=== PATIENT | female | born 1965 | race Caucasian/White ===

== ENCOUNTER 2019-12-13 15:34 | Emergency (ER) | payer BC, OTHER ==
[2019-12-13 15:53] VITALS: BP 110/75; PULSE 85; TEMP 99; BMI 34.3
--- OUTSIDE RECORDS SUMMARY | 2019-12-13 16:18 | XMS ---
:1965 [facility] Support Name Relationship Address Phone DAVID ANDERSON Unavailable [address] [place] [address] NIESHA BAR SISTER [address] [phone] [place] [address] Re-disclosure Warning The records that you are about to access may contain information from federally- assisted alcohol or drug abuse programs. If such information is present, then the following federally mandated warning applies: This information has been disclosed to you from records protected by federal confidentiality rules (42 CFR part 2). The federal rules prohibit you from making any further disclosure of this information unless further disclosure is expressly permitted by the written consent of the person to whom it pertains or as otherwise permitted by 42 CFR part 2. A general authorization for the release of medical or other information is NOT sufficient for this purpose. The Federal rules restrict any use of the information to criminally investigate or prosecute any alcohol or drug abuse patient.The records that you are about to access may contain highly sensitive health information, the redisclosure of which is protected by Article 27-F of the [facility] Public Health law. If you continue you may haveaccess to information: Regarding HIV / AIDS; Provided by facilities licensed or operated by the [facility] Office of Mental Health; or Provided by the [facility] Office for People With Developmental Disabilities. If such information is present, then the following [facility] mandated warning applies: This information has been disclosed to you from confidential records which are protected by state law. State law prohibits you from making any further disclosure of this information without the specific written consent of the person to whom it pertains, or as otherwise permitted by law. Any unauthorized further disclosure in violation of state law may result in a fine or penitentiary sentence or both. A general authorization for the release of medical or other information is NOT sufficient authorization for further disclosure. Insurance Providers Payer Policy type Policy ID Covered Covered libertarian's Policy Pl an name / Coverage libertarian ID relationship to [facility] CBP [id number] SP [id number] OUTPT BC PPO [id number] SP [id number] Results ID Date Data Source [id number] 09/09/2019 11:45:00 AM EDT [facility] Name Value Range Interpretation Code Description Data Latesha rce(s) Supporting Document(s ) COV2 [facility] This lab was ordered by [place] reported by [facility]. Procedure
--- NOTE | 2019-12-13 16:58 | PDOC ---
History of Present Illness - General Chief Complaint: Pain Stated Complaint: LT LEG PAIN Time Seen by Provider: 12/13/19 15:49 History Source: Patient Exam Limitations: No Limitations - History of Present Illness Initial Comments: 12/13/19 16:18 54-year-old female history of ovarian cancer status post hysterectomy, gastritis, GI bleed requiring transfusion approximately 1 year ago presents complaining of left lower extremity pain, swelling and warmth. Patient sustained mechanical injury status post slip and fall December 01, 2019 landing directly on anterior left lower extremity tib-fib. States the area has been warm since the time of injury. Has been ambulating normally, denies calf pain, shortness of breath, palpitations, fever, chills or any other complaints. ROS: as above PE: GENERAL: well-appearing, NAD HEAD: NCAT EYES: Pupils equal, round and reactive to light, sclera anicteric, conjunctiva clear ENT: pharynx: no erythema, no exudate, uvula midline NECK: supple CHEST: nontender RESP: clear, no w/r/r CARDIO: rrr, no m/g/r ABD: +BS, soft, nontender, non distended BACK: no midline spinal ttp, no CVAT EXTREMITIES: Normal range of motion, left lower extremity with swelling approx 2 cm x 4 cm to anterior tib/fib area with warmth and ttp, bruising below hematoma noted NEUROLOGICAL: Normal speech, normal gait SKIN: Warm, Dry 12/13/19 17:15 Is this a multiple visit Asthma Patient?: No Past History - Medical History Allergies/Adverse Reactions: Allergies Allergy/AdvReac Type Severity Reaction Status Date / Time No Known Allergies Allergy Verified 12/13/19 15:50 Home Medications: Ambulatory Orders Cephalexin [Keflex] 500 mg PO TID 7 Days #21 capsule 12/13/19 COPD: No - Reproductive History Is Patient Now?: No - Psycho-Social/Smoking History Smoking History: Never smoked *Physical Exam - Vital Signs Last Vital Signs Temp Pulse Resp BP Pulse Ox 99 F 85 18 110/75 98 12/13/19 15:46 12/13/19 15:46 12/13/19 15:46 12/13/19 15:46 12/13/19 15:46 ED Treatment Course - RADIOLOGY Radiology Studies Ordered: Category Date Time Status LEG TIB/FIB-LEFT [RAD] Stat Radiology 12/13/19 15:50 Taken DUPLEX VASCUL US-1 LEG [US] Stat Ultrasound 12/13/19 15:50 Ordered Medical Decision Making - Medical Decision Making 12/13/19 17:17 54-year-old female history of ovarian cancer status post hysterectomy, gastritis, GI bleed requiring transfusion approximately 1 year ago presents complaining of left lower extremity pain, swelling and warmth. Patient sustained mechanical injury status post slip and fall December 01, 2019 landing directly on anterior left lower extremity tib-fib. States the area has been warm since the time of injury. Has been ambulating normally, denies calf pain, shortness of breath, palpitations, fever, chills or any other complaints. Exam consistent with hematoma and possible early cellulitis will send rx for cephalexin 500 mg tid x 7 days for early cellulitis Left tib-fib x-ray with no acute fracture Left lower extremity ultrasound and soft tissue ultrasound official report pending 12/13/19 17:54 LLE soft tissue us with hematoma, probable infection LLE US no DVT no fx on LLE xray stable for d/c Discharge - Discharge Information Problems reviewed: Yes Clinical Impression/Diagnosis: Hematoma and contusion Cellulitis Qualifiers: Site of cellulitis: extremity Site of cellulitis of extremity: lower extremity Laterality: left Qualified Code(s): L03.116 - Cellulitis of left lower limb Condition: Stable Disposition: HOME - Admission No - Additional Discharge Information Prescriptions: Cephalexin [Keflex] 500 mg PO TID 7 Days #21 capsule - Follow up/Referral Referrals: Abisai Flores MD [Primary Care Provider] - - Patient Discharge Instructions Additional Instructions: take cephalexin 500 mg one tab every 8 hours for 7 days rest, elevate area apply ice return to ED if fever, chills, calf pain, chest pain, shortness of breath or any other concerning symptoms - Post Discharge Activity
== END 2019-12-13 17:31 | disposition home or self-care (01) ==
LOC: JERFT 15:34 → JER 15:34 → JERFT 17:31
DX: L03.116 Cellulitis of left lower limb (principal)
CPT/HCPCS: 73590-TC-LT-FY; 76882-TC-RT-FY; 93971-TC; 99285-25

== ENCOUNTER 2021-02-15 20:25 | Emergency (ER) | payer BC, OTHER ==
[2021-02-15 20:54] VITALS: BP 125/78; PULSE 78; TEMP 98.9; BMI 35.2
== END 2021-02-15 21:15 | disposition home or self-care (01) ==
LOC: JERFT 20:25 → JER 20:25 → JERFT 21:15
DX: M79.10 Myalgia, unspecified site (principal); Z11.52 Encounter for screening for COVID-19
CPT/HCPCS: 99283-25; C9803; U0003; U0005

== ENCOUNTER 2021-02-24 10:05 | Emergency (ER) | payer BC, OTHER | END 2021-02-24 10:25 | disposition home or self-care (01) | LOC: JVIRT 10:05 | DX: Z11.52 Encounter for screening for COVID-19 (principal) | CPT/HCPCS: C9803; Q3014-GT; U0003; U0005 ==